=== PATIENT | female | born 1990 | race Caucasian/White ===

== ENCOUNTER 2020-03-03 19:22 | Outpatient (CLI) | payer OTHER, SELFPAY ==
--- NOTE | 2020-03-03 19:30 | XR_ITS ---
WS: [id number] EXAM: RIGHT FOOT: 3 VIEWS DATE OF EXAMINATION: 03/03/2020, 1939 hours COMPARISON: None. HISTORY: 30 years old with a puncture wound in the pad of the foot for metastatic wall [place]. Complaining of pain. Assess for foreign body. FINDINGS: Bone density is normal in appearance. No fracture, lytic or blastic process is seen. No radiopaque fo reign body is demonstrated. It should be noted however that wood may very well be radiolucent. XR/XR foot RT min 3V* [id number] IMPRESSION: No acute abnormality. No radiopaque foreign body seen.
== END 2020-03-03 19:23 | disposition home or self-care (01) ==
LOC: RAD 19:25
PROVIDERS: Visit Provider Nurse Practitioner
DX: S99.821A Other specified injuries of right foot, initial encounter (principal); X58.XXXA Exposure to other specified factors, initial encounter
CPT/HCPCS: 73630